=== PATIENT | female | born 1995 | race African-American/Black ===

== ENCOUNTER 2019-01-11 02:17 | Emergency (ER) | payer BC | END 2019-01-11 05:03 | disposition home or self-care (01) | LOC: JER 02:17 | PROC: 3E033NZ Introduction of Analgesics, Hypnotics, Sedatives into Peripheral Vein, Percutaneous Approach (ICD-10-PCS; principal; 2019-01-11) | PROC: 3E033GC Introduction of Other Therapeutic Substance into Peripheral Vein, Percutaneous Approach (ICD-10-PCS; 2019-01-11) | PROC: 3E033GC Introduction of Other Therapeutic Substance into Peripheral Vein, Percutaneous Approach (ICD-10-PCS; 2019-01-11) | DX: G44.009 Cluster headache syndrome, unspecified, not intractable (principal) ==